=== PATIENT | male | born 1955 | race Hispanic/Latino ===

== ENCOUNTER → 2024-05-03 | Outpatient (CLI) | payer OTHER ==
[2024-05-03 12:51] LABS: CREATININE 0.7 mg/dL (0.5-1.3); POTASSIUM 3.9 mmol/L (3.5-5.1)
== END | disposition home or self-care (01) ==
LOC: LAB 10:31
PROVIDERS: ATTEND Internal Medicine Cardiovascular Disease
DX: I50.22 Chronic systolic (congestive) heart failure (principal)
CPT/HCPCS: 36415; 80048; 83880

== ENCOUNTER → 2024-06-01 | Outpatient (CLI) | payer OTHER ==
[2024-06-01 13:15] LABS: ALBUMIN 3.5 g/dL (3.5-5.0); BILIRUBIN,TOTAL 0.5 mg/dL (0.2-1.0); CREATININE 0.7 mg/dL (0.5-1.3); POTASSIUM 4.2 mmol/L (3.5-5.1); TOTAL PROTEIN, SERUM 6.5 g/dL (6.0-8.3)
== END | disposition home or self-care (01) ==
LOC: LAB 10:48
PROVIDERS: ATTEND Internal Medicine Cardiovascular Disease
DX: I50.22 Chronic systolic (congestive) heart failure (principal)
CPT/HCPCS: 36415; 80053; 80061; 83880

== ENCOUNTER → 2024-06-27 | Outpatient (CLI) | payer OTHER | END | disposition home or self-care (01) | LOC: RAH 10:57 | PROVIDERS: ATTEND Internal Medicine Cardiovascular Disease | DX: I50.22 Chronic systolic (congestive) heart failure (principal) | CPT/HCPCS: 71046 ==

== ENCOUNTER → 2024-10-16 | Outpatient (CLI) | payer OTHER ==
[~2024-10-16] MED LIST: ATOR40TA71 PO
[2024-10-16 12:23] LABS: BASOPHILS # (AUTO) 0.04 K/uL (0.00-0.20); BASOPHILS % (AUTO) 0.5 % (0.0-5.0); EOSINOPHILS # (AUTO) 0.16 K/uL (0.00-0.70); EOSINOPHILS % (AUTO) 1.9 % (0.0-8.0); HEMATOCRIT 37.5 % (42-54); IMMATURE GRANULOCYTE ABSOLUTE 0.02 K/uL (0-1); LYMPHOCYTES # (AUTO) 2.9 K/uL (1.0-4.8); LYMPHOCYTES % (AUTO) 34.7 % (21.0-51.0); MEAN CORPUSCULAR HEMOGLOBIN 30.3 pg (27.0-33.0); MEAN CORPUSCULAR HGB CONC 31.5 g/dL (32.0-36.0); MEAN CORPUSCULAR VOLUME 96.4 fL (79-99); MONOCYTES # (AUTO) 0.5 K/uL (0.1-1.0); MONOCYTES % (AUTO) 6.4 % (3.0-13.0); NEUTROPHILS # (AUTO) 4.7 K/uL (1.8-7.7); NEUTROPHILS % (AUTO) 56.3 % (40.0-77.0); PLATELET COUNT (AUTO) 333 K/uL (130-400); RED BLOOD CELL COUNT(AUTO) 3.89 MIL/uL (4.50-6.20); RED CELL DISTRIBUTION WIDTH 16.3 % (11.0-15.5); WHITE BLOOD COUNT (AUTO) 8.3 K/uL (4.8-10.8)
[2024-10-16 12:47] LABS: ALBUMIN 2.8 g/dL (3.5-5.0); BILIRUBIN,TOTAL 0.3 mg/dL (0.2-1.0); TOTAL PROTEIN, SERUM 6.7 g/dL (6.0-8.3)
[2024-10-16 13:01] LABS: B-TYPE NATRIURETIC PEPTIDE 939 pg/mL (0-100)
== END | disposition home or self-care (01) ==
LOC: LAB 10-13 11:22
PROVIDERS: ATTEND Internal Medicine Cardiovascular Disease
DX: E78.5 Hyperlipidemia, unspecified (principal)
CPT/HCPCS: 36415; 80053; 80061; 83735; 83880; 85025

== ENCOUNTER → 2024-10-19 | Outpatient (CLI) | payer OTHER ==
--- NOTE | 2024-10-19 13:31 | HMCIMG ---
Exam Type: CHEST 2VWS Clinical Information: CHRONIC SYSTOLIC AND DIASTOLIC , CHF Comparison: None Findings: There is cardiomegaly and there is status post median sternotomy. The lungs are clear of infiltrates. Impression: Clear lungs.
== END | disposition home or self-care (01) ==
LOC: RAH 13:00
PROVIDERS: ATTEND Internal Medicine Cardiovascular Disease
DX: I50.42 Chronic combined systolic (congestive) and diastolic (congestive) heart failure (principal); I51.7 Cardiomegaly; I25.810 Atherosclerosis of coronary artery bypass graft(s) without angina pectoris
CPT/HCPCS: 71046

== ENCOUNTER → 2024-10-23 | Outpatient (CLI) | payer OTHER ==
[2024-10-23 13:24] LABS: POTASSIUM 4.8 mmol/L (3.5-5.1)
== END | disposition home or self-care (01) ==
LOC: LAB 08:46
PROVIDERS: ATTEND Internal Medicine Cardiovascular Disease
DX: I50.22 Chronic systolic (congestive) heart failure (principal); I25.2 Old myocardial infarction
CPT/HCPCS: 36415; 80048; 83880

== ENCOUNTER → 2024-12-04 | Outpatient (CLI) | payer OTHER ==
[2024-12-04 12:27] LABS: POTASSIUM 4.7 mmol/L (3.5-5.1)
== END | disposition home or self-care (01) ==
LOC: LAB 10:11
PROVIDERS: ATTEND Internal Medicine Cardiovascular Disease
DX: I25.810 Atherosclerosis of coronary artery bypass graft(s) without angina pectoris (principal); I25.2 Old myocardial infarction; I50.42 Chronic combined systolic (congestive) and diastolic (congestive) heart failure
CPT/HCPCS: 36415; 80048; 83880

== ENCOUNTER 2025-01-23 06:40 | Day surgery (SDC) | payer OTHER ==
[2025-01-18 08:45] LABS: BASOPHILS # (AUTO) 0.05 K/uL (0.00-0.20); BASOPHILS % (AUTO) 0.7 % (0.0-5.0); EOSINOPHILS # (AUTO) 0.09 K/uL (0.00-0.70); EOSINOPHILS % (AUTO) 1.2 % (0.0-8.0); HEMATOCRIT 40.8 % (42-54); IMMATURE GRANULOCYTE ABSOLUTE 0.03 K/uL (0-1); LYMPHOCYTES # (AUTO) 1.4 K/uL (1.0-4.8); LYMPHOCYTES % (AUTO) 18.7 % (21.0-51.0); MEAN CORPUSCULAR HEMOGLOBIN 30.9 pg (27.0-33.0); MEAN CORPUSCULAR HGB CONC 32.6 g/dL (32.0-36.0); MEAN CORPUSCULAR VOLUME 94.9 fL (79-99); MONOCYTES # (AUTO) 0.4 K/uL (0.1-1.0); MONOCYTES % (AUTO) 5.4 % (3.0-13.0); NEUTROPHILS # (AUTO) 5.5 K/uL (1.8-7.7); NEUTROPHILS % (AUTO) 73.6 % (40.0-77.0); PLATELET COUNT (AUTO) 244 K/uL (130-400); RED CELL DISTRIBUTION WIDTH 15.4 % (11.0-15.5); WHITE BLOOD COUNT (AUTO) 7.5 K/uL (4.8-10.8)
[2025-01-18 09:00] VITALS: BP 103/50; PULSE 88; RESP 18; TEMP 97.9
[2025-01-18 09:04] LABS: INR 1.05 (0.85-1.15); PROTHROMBIN TIME 11.1 SEC (9.6-11.6)
[2025-01-18 09:06] LABS: CREATININE 1.2 mg/dL (0.5-1.3)
--- NOTE | 2025-01-18 13:24 | EKG ---
[facility] Test Date: 2025-01-18 Test Time: 08:27:01 Pat Name: MATI MCDANIELS Department: [facility] Room: Gender: M Collection Advisor: [id number] : 1955 Requested By: BERONICA PENDLETON Order Number: [id number] Reading MD: Amilcar Lomeli Measurements Intervals [place] Rate: 89 P: -61 AR: 153 QRS: 5 QRSD: 186 T: 228 QT: 450 QTc: 549 Interpretive Statements Sinus or ectopic atrial rhythm Left bundle branch block ST elevation secondary to IVCD Compared to ECG 07/24/2024 18:35:37 Ectopic atrial rhythm now present Left bundle-branch block now present Intraventricular conduction delay now present ST (T wave) deviation now present Sinus tachycardia no longer present Myocardial infarct finding no longer present Electronically Signed On 01-20-2025 12:29:03 CDT by Amilcar Lomeli Please click the below link to view image of tracing.
[2025-01-23] VITALS (8 sets, daily range): BP systolic 105–111; BP diastolic 60–79; PULSE 74–91; RESP 16–18; TEMP 97.2–207.1
[~2025-01-23] VITALS: Ht 167.6 cm; Wt 101.1 kg
[~2025-01-23 06:40] MED LIST changes: +ASPI-1443 PO; +BUSP5TAB3 PO; +DAPA10TA PO; +FURO40TA5 PO; +GABA-529 PO; +METF-446 PO; +METO-408 PO; +PANT40TA54 PO; +SACU1TAB PO; +SEMA3TAB4 PO
[2025-01-23] MEDS: 0.9%NACL 1000ML 1,000 ML IV SCH (08:13)
[2025-01-23] MEDS ORDERED: SPIR25TA6 PO (08:21)
[2025-01-23] MEDS ORDERED: DOCU-280 PO (08:21)
[2025-01-23] MEDS ORDERED: TRAZ-185 PO (08:21)
[2025-01-23] MEDS ORDERED: ASCO500C18 PO (08:21)
[2025-01-23] MEDS ORDERED: SODIUM BICARB 50MEQ 50ML VIAL 50 ML ONE (12:15)
[2025-01-23] MEDS ORDERED: ceFAZolin SODIUM 1 GM VIAL ONE (12:15)
[2025-01-23] MEDS ORDERED: BUPIvacaine/PF 0.25% 30ML VIAL IJ ONE (12:15)
[2025-01-23] MEDS ORDERED: IOHEXOL-350 50ML VIAL IV ONE (12:15)
[2025-01-23] MEDS ORDERED: LIDOCAINE HCL 1% MDV 50ML VIAL ONE (12:15)
[2025-01-23] MEDS ORDERED: MIDAZOLAM HCL 1 MG/ML 2ML VIAL ONE (12:43)
[2025-01-23] MEDS ORDERED: FENTanyl CITRate PF 50 MCG/1 ML 2ML VIAL ONE (12:43)
[2025-01-23] MEDS ORDERED: TRAM50TA4 PO (14:41)
[2025-01-23] MEDS ORDERED: acetaMINOPHEN WITH coDEINE 1 TAB TAB PO PRN ×2 (15:00)
[2025-01-23] MEDS ORDERED: acetaMINOPHEN 500 MG TABLET PO PRN (15:00)
--- NOTE | 2025-01-23 16:40 | HMCIMG ---
Exam Type: CHEST 1VW Clinical Information: s/p WATER TREATMENT TECHNICIAN-D Comparison: None Findings: There is cardiomegaly and there is status post median sternotomy. The lungs are clear of infiltrates. Left-sided cardiac pacemaker is noted with leads in place. Impression: Clear lungs.
--- NOTE | 2025-01-23 17:10 | NUR ---
dr sweeney return call after evaluating chest xray okay to dc pt home with instructions
== END 2025-01-23 17:20 | disposition home or self-care (01) ==
LOC: DAH 06:40
PROVIDERS: ATTEND Internal Medicine Cardiovascular Disease
DX: I25.5 Ischemic cardiomyopathy (principal); I11.0 Hypertensive heart disease with heart failure; I50.42 Chronic combined systolic (congestive) and diastolic (congestive) heart failure; I25.10 Atherosclerotic heart disease of native coronary artery without angina pectoris; I25.2 Old myocardial infarction; I44.7 Left bundle-branch block, unspecified; E78.5 Hyperlipidemia, unspecified; E11.9 Type 2 diabetes mellitus without complications; Z95.1 Presence of aortocoronary bypass graft; Z79.899 Other long term (current) drug therapy; Z79.84 Long term (current) use of oral hypoglycemic drugs; Z98.890 Other specified postprocedural states; Z80.9 Family history of malignant neoplasm, unspecified
CPT/HCPCS: 80048; 85025; 85610; 85730; 36415; 93005; 33249; 33225; 82948 ×2; 71045; C1777; C1898; C1900; C1769; C1882; J3010; J0690; J7030; J0665; J3490 ×2; J2250; Q9967; A4215; A4222; A4221; A4663; A4216; A4606; A4223 ×3; 99156; 99157; C-1882